=== PATIENT | female | born 1950 | race Caucasian/White ===

== ENCOUNTER 2018-06-11 11:48 | Emergency (ER) | payer OTHER ==
[~2018-06-11] VITALS: Ht 152.4 cm; Wt 54.4 kg
[2018-06-11] MEDS ORDERED: ATORVASTATIN CA40 MG (12:02)
[2018-06-11] MEDS ORDERED: ATENOLOL25 GM (12:02)
[2018-06-11] MEDS ORDERED: CENTANY30 GM TOP (16:04)
[2018-06-11] MEDS ORDERED: BENADRYL50 MG PO (16:04)
== END 2018-06-11 21:23 | disposition home or self-care (01) ==
LOC: ER 11:48
DX: B86 Scabies (principal); L50.8 Other urticaria

== ENCOUNTER 2021-04-20 07:58 | Outpatient (CLI) | payer OTHER ==
[~2021-04-20 07:58] MED LIST: ATENOLOL25 GM; ATORVASTATIN CA40 MG; BENADRYL50 MG PO; CENTANY30 GM TOP
== END 2021-04-20 07:59 | disposition home or self-care (01) ==
LOC: NUCLEAR 07:58
PROVIDERS: ATTEND Internal Medicine Cardiovascular Disease
DX: I20.9 Angina pectoris, unspecified (principal); I25.2 Old myocardial infarction; I11.9 Hypertensive heart disease without heart failure
CPT/HCPCS: 78452; 93017; A9500; J0153